=== PATIENT | female | born 1955 ===

== ENCOUNTER → 2021-08-11 09:37 | Outpatient (BNVA) | payer MEDICARE, MEDICAID, SELFPAY | PROVIDERS: PCP Internal Medicine; Visit Provider Nurse Practitioner Family | DX: G43.009 Migraine without aura, not intractable, without status migrainosus (principal); G44.329 Chronic post-traumatic headache, not intractable; H81.10 Benign paroxysmal vertigo, unspecified ear | CPT/HCPCS: 99212 ==

== ENCOUNTER → 2021-11-21 13:31 | Outpatient (BNVA) | payer MEDICARE, MEDICAID, SELFPAY | PROVIDERS: PCP Internal Medicine; Visit Provider Nurse Practitioner Family | DX: G43.009 Migraine without aura, not intractable, without status migrainosus (principal); G44.329 Chronic post-traumatic headache, not intractable; H81.10 Benign paroxysmal vertigo, unspecified ear | CPT/HCPCS: 99212 ==

== ENCOUNTER → 2022-03-23 12:53 | Outpatient (BNVA) | payer MEDICARE, MEDICAID, SELFPAY | PROVIDERS: PCP Internal Medicine; Visit Provider Nurse Practitioner Family | DX: G44.329 Chronic post-traumatic headache, not intractable (principal); G43.009 Migraine without aura, not intractable, without status migrainosus; H81.10 Benign paroxysmal vertigo, unspecified ear; Z79.899 Other long term (current) drug therapy | CPT/HCPCS: 99212 ==

== ENCOUNTER → 2022-07-27 14:40 | Outpatient (BNVA) | payer MEDICARE, MEDICAID, SELFPAY | PROVIDERS: PCP Internal Medicine; Visit Provider Nurse Practitioner Family | DX: G25.81 Restless legs syndrome (principal); H81.10 Benign paroxysmal vertigo, unspecified ear; G43.009 Migraine without aura, not intractable, without status migrainosus; Z79.899 Other long term (current) drug therapy | CPT/HCPCS: 99212 ==

== ENCOUNTER → 2022-11-09 11:30 | Outpatient (BNVA) | payer MEDICARE, MEDICAID, SELFPAY | PROVIDERS: PCP Internal Medicine; Visit Provider Nurse Practitioner Family | DX: G43.009 Migraine without aura, not intractable, without status migrainosus (principal); H81.10 Benign paroxysmal vertigo, unspecified ear; G25.81 Restless legs syndrome; Z79.899 Other long term (current) drug therapy | CPT/HCPCS: 99212 ==